=== PATIENT | female | born 2000 | race African-American/Black ===

== ENCOUNTER 2023-01-31 17:14 | Emergency (ER) | payer OTHER ==
[2023-01-31 17:26] VITALS: BP 104/61; PULSE 91; RESP 18; TEMP 98; BMI 19.2
[2023-01-31] MEDS ORDERED: ONDANSETRON 4 MG/2 ML VIAL IVPUSH ONE (19:14)
[2023-01-31] MEDS ORDERED: SODIUM CHLORIDE 1,000 ML IV STA (19:14)
[2023-01-31] MEDS ORDERED: ONDANSETRON 4 MG/2 ML VIAL ONE (19:37)
[2023-01-31 20:07] LABS: BASO % 0.4 % (0-2.0); HEMATOCRIT 39.1 % (32.4-45.2); HEMOGLOBIN 12.8 GM/dL (10.7-15.3); LYMPH % 6.6 % (8-40); MCH 30.6 pg (25.7-33.7); MCHC 32.7 g/dl (32.0-36.0); MEAN CELL VOLUME 93.5 fl (80-96); MEAN PLT VOLUME 9.5 fl (7.5-11.1); MONO % 4.5 % (3.8-10.2); NEUT % 88.5 % (42.8-82.8); PLATELET COUNT 240 10^3/uL (134-434); RBC 4.18 M/mm3 (3.60-5.2); RDW 13.4 % (11.6-15.6)
[2023-01-31 20:27] LABS: POTASSIUM 4.3 mmol/L (3.5-5.1)
[2023-01-31 20:30] LABS: ALBUMIN 4.6 g/dl (3.4-5.0); BLOOD UREA NITROGEN 13.9 mg/dL (7-18); CALCIUM 9.8 mg/dL (8.5-10.1)
[2023-01-31 20:33] LABS: CREATININE 1.4 mg/dL (0.55-1.3)
[2023-01-31 20:34] LABS: BILIRUBIN,TOTAL 0.7 mg/dL (0.2-1); TOT PROT 8.1 g/dl (6.4-8.2)
[2023-01-31 20:58] LABS: EPI CELLS 36 /uL (0-25.1); HYALINE CASTS 0 /uL (0-3.1); PH,URINE 6.5 (5.0-8.0); URINE APPEARANCE CLEAR; URINE BACTERIA 272 /uL (0-1359); URINE BILIRUBIN NEGATIVE (NEGATIVE); URINE COLOR YELLOW; URINE GLUCOSE (UA) NEGATIVE (NEGATIVE); URINE KETONE NEGATIVE (NEGATIVE); URINE LEUK ESTERASE TRACE (NEGATIVE); URINE NITRITE NEGATIVE (NEGATIVE); URINE PROTEIN NEGATIVE (NEGATIVE); URINE RBC 21 /uL (0-23.9); URINE UROBILINOGEN 0.2 mg/dL (0.2-1.0); URINE WBC 48 /uL (0-25.8)
== END 2023-01-31 22:10 | disposition home or self-care (01) ==
LOC: JER 17:14
PROC: 3E033GC Introduction of Other Therapeutic Substance into Peripheral Vein, Percutaneous Approach (ICD-10-PCS; principal; 2023-01-31)
PROC: 3E0337Z Introduction of Electrolytic and Water Balance Substance into Peripheral Vein, Percutaneous Approach (ICD-10-PCS; 2023-01-31)
DX: R11.2 Nausea with vomiting, unspecified (principal); R10.84 Generalized abdominal pain; R19.7 Diarrhea, unspecified
CPT/HCPCS: 36415; 80053; 81003; 83690; 84703; 85025; 87086; 99284-25